=== PATIENT | female | born 1970 | race Caucasian/White ===

== ENCOUNTER 2022-05-22 03:01 | Emergency (ER) | payer MEDICAID, OTHER | END 2022-05-22 05:23 | disposition home or self-care (01) | LOC: CSHERS 03:01 | DX: Z59.00 Homelessness unspecified (principal); Z13.30 Encounter for screening examination for mental health and behavioral disorders, unspecified; F17.210 Nicotine dependence, cigarettes, uncomplicated | CPT/HCPCS: 99284 ==